=== PATIENT | male | born 1950 | race Caucasian/White ===

== ENCOUNTER → 2016-09-07 | Outpatient (CLI) | payer BC ==
[~2016-09-07] MED LIST: ATARAX PO; DIOVAN80 M1 PO; ETODOLAC500 MG PO; HYDROCODONE-APA1 T41 PO; MULTIPLE VITAMI1 T11 PO; OSTEO BI-FLEX1 EAC1 PO; PERCOCET5/325; PROSTATE HEALT1 EACH PO
--- NOTE | ~2016-09-07 | CR63 ---
[facility] A Service of [facility] & [facility] RADIOLOGY TEXT RESULTS PATIENT: ANDERSON GONCALVES LOCATION: [facility] : 54 UNIT #: [id number] AGE: [address]: MAGO COOLEY APRN SEX: M ORDER DR: [id number] [facility] [address] [place], [place] [address] [id number] O MR#: [id number] Acc #: [id number] NAME: ANDERSON GONCALVES : 1950 SEX: M STUDY DATE/TIME: 09/07/2016 10:52 UNIT: [facility] ROOM: STUDY DESCRIPTION: CR Chest 2 View Attending Physician: Mago Cooley Np Referring Physician: aMgo Cooley Np Primary Care Physician: Gala Díaz M.D. MEDICAL IMAGING REPORT This report is preliminary unless electronic signature is present EXAM PA and lateral chest INDICATION 66-year-old male with cough and shortness of breath for several weeks. COMPARISON 12/13/2007. FINDINGS Stable scarring in the left lung. There is no airspace consolidation. Heart size normal. Degenerative changes thoracic spine. Calcified mediastinal and hilar nodes. IMPRESSION No active disease. Dictated by... Rico Lal M.D. THIS IS AN ELECTRONICALLY VERIFIED REPORT Rico Lal M.D. at 09/07/2016 4:39 PM ANDRES/cindy TD: 09/07/2016 12:16 JOB #: [id number] MEDICAL IMAGING REPORT COPY
== END | disposition home or self-care (01) ==
LOC: CRAD 10:24
DX: R05 Cough (principal)
CPT/HCPCS: 71020